=== PATIENT | female | born 1995 | race Caucasian/White ===

== ENCOUNTER 2018-07-22 10:45 | Emergency (ER) | payer OTHER ==
[2018-07-22 10:51] VITALS: BP 118/63
--- NOTE | 2018-07-22 11:18 | EDPHY ---
H & P Time Seen by Provider: 07/22/18 11:04 HPI/ROS: CHIEF COMPLAINT: Possible pilonidal abscess HISTORY OF PRESENT ILLNESS: 23-year-old immunocompetent female with prior history of pilonidal abscess with surgical intervention performed in [place] 5 years ago complaining of pain to the cleft of the buttock for the past 2 days. No drainage. No fever no chills. No nausea no vomiting. No pain with defecation. PHYSICAL EXAM (Prior to examination, patient consented to physical exam, hands were washed and my usual and customary physical exam procedures followed) 1) GENERAL: Well-developed, well-nourished, alert and oriented. Appears to be in no acute distress. 2) HEAD: Normocephalic 3) HEENT: sclera anicteric 4) LUNGS: Breathing comfortably. 5) SKIN: (with female tech Hannah at bedside) The cleft of the patient's buttock she has a dehisced surgical incision with no signs of infection. She is tender to palpation directly over this area with no fluctuance. No drainage. No erythema. No induration. No extension to the perianal region. The buttock itself is nontender with no crepitus no erythema. Smoking Status: Never smoked Constitutional: Initial Vital Signs Temperature (C) 36.6 C 07/22/18 10:48 Heart Rate 73 07/22/18 10:48 Respiratory Rate 18 07/22/18 10:48 Blood Pressure 118/63 07/22/18 10:48 O2 Sat (%) 98 07/22/18 10:48 O2 Delivery Mode Room Air Allergies/Adverse Reactions: No Known Allergies Allergy (Unverified 07/22/18 10:48) Home Medications: Medication Instructions Recorded Cephalexin [Keflex] 500 mg PO TID 7 Days cap 07/22/18 MDM/Departure - MDM ED Course/Re-evaluation: Needle aspiration performed which is subsequently negative. At this time I do not think that incision drainage are indicated. She has no evidence of perianal abscess or cellulitis to the buttock. Will provide referral information Dr.Charles Molina. She feels comfortable being discharged. Patient feels comfortable being discharged. All questions and concerns addressed by myself. Patient given my usual and customary discharge precautions and instructions regarding their clinical impression. Care of patient under supervision of primary Supervising physician Dr Meyer. - Depart Disposition: Home, Routine, Self-Care Clinical Impression: Pilonidal cyst Condition: Good Instructions: Pilonidal Cyst (ED) Prescriptions: Cephalexin [Keflex] 500 mg PO TID 7 Days cap Referrals: Nestor Molina MD [Medical Doctor] - As per Instructions
[2018-07-23] MEDS ORDERED: ONDANSETRON 4 MG/2 ML VIAL ONE (04:46)
== END 2018-07-22 11:27 | disposition home or self-care (01) ==
PROC: 0H98XZZ Drainage of Buttock Skin, External Approach (ICD-10-PCS; principal; 2018-07-22)
DX: L05.91 Pilonidal cyst without abscess (principal)
CPT/HCPCS: J2405